=== PATIENT | female | born 1995 | race Caucasian/White ===

== ENCOUNTER 2016-08-28 19:02 | Emergency (ER) | payer OTHER ==
[2016-08-28] MEDS ORDERED: LACTATED RINGER'S 1000 ML INJ 1,000 ML IV SCH (19:39)
[2016-08-28] MEDS ORDERED: SODIUM CHLORIDE 0.9% FLUSH 10 ML FLUSH IV FLUSH PRN (19:45)
[2016-08-28] MEDS ORDERED: ONDANSETRON HCL 4 MG/2 ML VIAL IV ONE (19:45)
[2016-08-28 20:28] LABS: HEMATOCRIT 33.2 % (35.0-46.0); MEAN CORPUSCULAR HEMOGLOBIN 29.8 PG (27.0-34.0); MEAN CORPUSCULAR HGB CONC 33.9 % (32.0-36.0); PLATELET COUNT 340 TH/MM3 (150-450); RED BLOOD COUNT 3.77 MIL/MM3 (4.00-5.30); RED CELL DISTRIBUTION WIDTH 17.2 % (11.6-17.2); REVIEW FLAG FINAL; WHITE BLOOD COUNT 17.4 TH/MM3 (4.0-11.0)
--- NOTE | 2016-08-28 20:34 | PD ---
HPI Chief Complaint vomiting Date Seen: Aug 28, 2016 (Scottie Gonzalez MD R2) Travel History International Travel<30 Days: No Contact w/Intl Traveler<30Days: No (Scottie Gonzalez MD R2) History of Present Illness HPI Ms. Regan is a 21 yo at 19 1/7 weeks (confirmed via ?2nd trimester US per patient) who presents with ~2 days of nausea/vomiting. Patient states that she has had recurrent symptoms of vomiting for approximately 48 hours; she states she has not been able to keep down food or liquids such as water during this period. Patient states that she has had vomiting previously in , and was previously diagnosed with her [employer] in [place] with hyperemesis gravidarum. Patient states that she was last hospitalized for IV fluids at approximately 13 weeks gestation; she states that she was forced to leave due to needing to care for her 1 yr old child. She has been prescribed promethazine and Zofran; she has been taking both of these medications during recent 2 days of vomiting without relief. Patient states that she cannot remember the last time she urinated but it has been a significant duration. Patient reports abdominal cramping but believes it to be secondary to dry heaving. Patient also reports dizziness, headaches, and shortness of breath in association with vomiting. No leg swelling. Patient reports unremarkable course other than hyperemesis. She reports normal US ~2 days ago. Patient reports moving to [facility] today via plane to live with her father. She reports she is in a safe social situation. Para: 1 : 2 (Sctotie Gonzalez MD R2) History Past Medical History Narrative Medical Hyperemesis (Scottie Gonzalez MD R2) Obstetric History Obstetric History 001 Full term vaginal delivery one year prior (Scottie Gonzalez MD R2) Past Surgical History Surgical History: No Previous Surgery (Scottie Gonzalez MD R2) Family History Family History: Negative (Scottie Gonzalez MD R2) Social History Narrative Social History Moved from [place] to [place] today. Patient residing with her father; patient reports safe social situation at home Alcohol Use: No Tobacco Use: No Substance Abuse: No (Scottie Gonzalez MD R2) Allergies-Medications (Allergen,Severity, Reaction): Coded Allergies: No Known Allergies (Unverified , 08/28/16) Home Meds Active Scripts Ondansetron Odt (Zofran Odt)4 Mg Tab4 Mg SL Q12HR PRN (Nausea/Vomiting) #20 TAB Ref 0 Prov:Scottie Gonzalez MD R2 08/28/16 Nitrofurantoin Monohydrate Macrocrystals (Macrobid)100 Mg [id number] Mg PO BID #14 CAP Ref 0 Prov:Scottie Gonzalez MD R2 08/28/16 Review of Systems General / Constitutional: No: Fever Eyes: No: Blurred Vision HENT: Headaches Cardiovascular: No: Chest Pain or Discomfort Respiratory: Short of Breath (in association with vomiting) Gastrointestinal: Nausea, Abdominal Pain (cramping, associated with vomiting) Genitourinary: Decreased Urinary Output Psychiatric: No: Anxiety, Depression (Scottie Gonzalez MD R2) Physical Exam BP 120/73 HR 76 RR 18 Narrative GENERAL: Well-nourished, well-developed patient. SKIN: Warm and dry. HEAD: Normocephalic and atraumatic. EYES: No scleral icterus. No injection or drainage. ENT: No nasal drainage noted. Mucous membranes pink. Airway patent. NECK: Supple, trachea midline. No JVD. CARDIOVASCULAR: Regular rate and rhythm, normal perfusion RESPIRATORY: CTAB, normal rate ABDOMEN/GI: Abdomen soft, non-tender, bowel sounds present, no rebound, no guarding Gravid; fundus approximately at umbilicus EXTREMITIES: No cyanosis or edema. NEUROLOGICAL: Awake and alert. Motor and sensory function grossly within normal limits. FHT's: FHR 150 with Doppler (Scottie Gonzalez MD R2) Data Data Vital Signs Reviewed: Yes Orders Vital Signs (Adult) .ON ADMISSION (08/28/16 19:39) Urinalysis - C+S If Indicated (08/28/16 19:39) ^ Hydration (08/28/16 19:39) Cbc No Diff, Includes Plts (08/28/16 19:39) Comprehensive Metabolic Panel (08/28/16 19:39) Gc And Chlamydia Pcr (08/28/16 19:39) Lactated Ringer's 1000 Ml Inj (Lr 1000 M (08/28/16 19:39) Sodium Chloride 0.9% Flush (Ns Flush) (08/28/16 21:00) Sodium Chloride 0.9% Flush (Ns Flush) (08/28/16 19:45) Ondansetron Inj (Zofran Inj) (08/28/16 19:45) Ob/Psych Drug Screen, Urine (08/28/16 19:39) Rubella Immune Status (08/28/16 19:39) Hepatitis Profile (08/28/16 19:39) Rapid Plasma Regin (Rpr) W Ttr (08/28/16 19:39) Type And Screen (08/28/16 19:39) Special Serology (08/28/16 19:39) Thyroid Stimulating Hormone (08/28/16 19:39) (Scottie Gonzalez MD R2) Vital Signs Reviewed: Yes Labs Laboratory Tests Test 08/28/16 08/28/16 19:40 20:15 White Blood Count 17.4 TH/MM3 (4.0-11.0) Red Blood Count 3.77 MIL/MM3 (4.00-5.30) Hemoglobin 11.3 GM/DL (11.6-15.3) Hematocrit 33.2 % (35.0-46.0) Mean Corpuscular Volume 88.0 FL (80.0-100.0) Mean Corpuscular Hemoglobin 29.8 PG (27.0-34.0) Mean Corpuscular Hemoglobin 33.9 % Concent (32.0-36.0) Red Cell Distribution Width 17.2 % (11.6-17.2) Platelet Count 340 TH/MM3 (150-450) Mean Platelet Volume 9.0 FL (7.0-11.0) Sodium Level 138 MEQ/L (136-145) Potassium Level 3.0 MEQ/L (3.5-5.1) Chloride Level 104 MEQ/L (98-107) Carbon Dioxide Level 23.1 MEQ/L (21.0-32.0) Anion Gap 11 MEQ/L (5-15) Blood Urea Nitrogen 11 MG/DL (7-18) Creatinine 0.70 MG/DL (0.50-1.00) Estimat Glomerular Filtration 104 ML/MIN Rate (>89) Random Glucose 74 MG/DL (74-106) Calcium Level 8.5 MG/DL (8.5-10.1) Total Bilirubin 0.5 MG/DL (0.2-1.0) Aspartate Amino Transf 22 U/L (15-37) (AST/SGOT) Alanine Aminotransferase 23 U/L (10-53) (ALT/SGPT) Alkaline Phosphatase 73 U/L (45-117) Total Protein 7.3 GM/DL (6.4-8.2) Albumin 3.4 GM/DL (3.4-5.0) Thyroid Stimulating Hormone 0.404 uIU/ML 3rd Gen (0.358-3.740) Blood Type A POSITIVE Antibody Screen NEGATIVE Blood Bank Comment Urine Color YELLOW (YELLW/STRAW) Urine Turbidity CLEAR (CLEAR) Urine pH 6.5 (5.0-8.5) Urine Specific [place] 1.029 (1.002-1.035) Urine Protein 30 mg/dL (NEG-TRACE) Urine Glucose (UA) NEG mg/dL (NEG) Urine Ketones 150 mg/dL (NEG) Urine Occult Blood NEG (NEG) Urine Nitrite POS (NEG) Urine Bilirubin NEG (NEG) Urine Urobilinogen LESS THAN 2.0 MG/DL (LESS THAN 2.0) Urine Leukocyte Esterase NEG (NEG) Urine RBC 2 /hpf (0-3) Urine WBC 6 /hpf (0-5) Urine Squamous Epithelial 4 /hpf (0-5) Cells Urine Bacteria MANY /hpf (NONE) Urine Mucus FEW /lpf (OCC) Microscopic Urinalysis Comment CULTURE INDICATED Urine Opiates Screen NEG (NEG) Urine Barbiturates Screen NEG (NEG) Urine Amphetamines Screen NEG (NEG) Urine Benzodiazepines Screen NEG (NEG) Urine Cocaine Screen NEG (NEG) Urine Cannabinoids Screen POS (NEG) (Peyton Jimenez MD) MDM Medical Record Reviewed: Yes Narrative Course / MDM 21 yo at 19 1/7 weeks (confirmed via ? 2nd trimester US per patient) who presents with ~2 days of nausea/vomiting -Suspect hyperemesis with vomiting w/o adequate oral intake -FHR 150 -No labs at this time Plan: -Will give IV fluids -Will check CBC, TSH, CMP, UA, UDS -Will check labs -Records request sent to prior OB -Will give Zofran 4mg IV Interval: CBCWBC 17.4, Hgb 11.3, PLT 340 CMPK 3, CR 0.70, LFTs wnl TSHWNL UA30 protein, 150 ketones. Positive nitrates, WBC 6, many bacteria UDSpositive for marijuana GC, chlamydia, labs pending Patient responded well to Zofran IV fluids Updated plan: We'll plan to discharge patient home with follow-up with OB provider per her choice in the community; will give patient resources for care for women and her family sports medicine We'll discharge him prescription for Macrobid for suspected UTI We'll discharge Zofran 4mg SL for vomiting Patient to return to OB ED with new symptoms or vomiting returns (Scottie Gonzalez MD R2) Attending Attestation 21 yo @ 19 weeks Hyperemesis treated in early . Continues to have some N/V. Arrived in [place] today moving from [place], records requested N/V with dehydration s/p IV fluids/Zofran Tolerating po and oral fluids now UA c/w UTI rx Macrobid Mild hypokalemia Rx given for oral K +THC - counseled (Peyton Jimenez MD) Diagnosis Diagnosis: Primary Impression: Hyperemesis gravidarum Additional Impressions: 19 weeks gestation of Tetrahydrocannabinol (THC) use disorder, mild, abuse Genitourinary tract infection during in second trimester Disposition: DISCHARGE HOME Condition: Stable Scripts Ondansetron Odt (Zofran Odt)4 Mg Tab4 Mg SL Q12HR PRN (Nausea/Vomiting) #20 TAB Ref 0 Prov:Scottie Gonzalez MD R2 08/28/16 Nitrofurantoin Monohydrate Macrocrystals (Macrobid)100 Mg [id number] Mg PO BID #14 CAP Ref 0 Prov:Scottie Gonzalez MD R2 08/28/16 Patient Instructions: Urinary Tract Infection in (ED), General Instructions, Morning Sickness (ED) Scottie Gonzalez MD R2 Aug 28, 2016 20:34 Peyton Jimenez MD Aug 28, 2016 21:36
[2016-08-28 20:45] LABS: ANION GAP 11 MEQ/L (5-15); AST (GOT) 22 U/L (15-37); BICARBONATE 23.1 MEQ/L (21.0-32.0); BLOOD UREA NITROGEN 11 MG/DL (7-18); CHLORIDE 104 MEQ/L (98-107); GLOMERULAR FILTRATION RATE 104 ML/MIN (>89); SODIUM (NA) 138 MEQ/L (136-145)
[2016-08-28 20:55] LABS: BACTERIA, URINE MANY /hpf; BLOOD, URINE NEG (NEG); COMMENT (UR) CULTURE INDICATED; CULTURE IF INDICATED CULTURE INDICATED; GLUCOSE,URINE NEG (NEG); KETONE, URINE 150 mg/dL (NEG); MUCUS URINE FEW /lpf (OCC); NITRITE,URINE POS (NEG); PH, URINE 6.5 (5.0-8.5); SQUAMOUS EPITHELIAL CELL URINE 4 /hpf (0-5); URINE COLOR YELLOW (YELLW/STRAW)
[2016-08-28 20:56] LABS: ALKALINE PHOSPHATASE 73 U/L (45-117); ALT (GPT) 23 U/L (10-53); TOTAL BILIRUBIN ADULT 0.5 MG/DL (0.2-1.0)
[2016-08-28 21:00] LABS: AMPHETAMINE, URINE NEG (NEG); BARBITURATES, URINE NEG (NEG); COCAINE, URINE NEG (NEG)
[2016-08-28] MEDS ORDERED: SODIUM CHLORIDE 0.9% FLUSH 10 ML FLUSH IV FLUSH SCH (21:00)
[2016-08-28] MEDS ORDERED: ZOFR4TAB3 SL (21:29)
[2016-08-28] MEDS ORDERED: MACR100C2 PO (21:29)
[2016-08-28] MEDS ORDERED: POTASSIUM CHLORIDE 20 MEQ CONTROLLED RELEASE TAB PO ONE (21:30)
[2016-08-28] MEDS ORDERED: NITROFURANTOIN MONOHYD MACROCR 100 MG CAP PO SCH (21:30)
[2016-08-28 23:15] LABS: RUBELLA IGG ANTIBODY 49.7 IU/mL (10.0-500.0); RUBELLA STATUS IMMUNE (IMMUNE)
[2016-08-29 00:32] LABS: CHLAMYDIA PCR NOT DETECTED (NOT DETECT); NEISSERIA PCR NOT DETECTED (NOT DETECT)
[2016-08-29 10:04] LABS: RAPID PLASMA REAGIN SCREEN NON-REACTIVE (NON-REACTVE)
[2016-09-03 12:55] LABS: PHENCYCLIDINE URINE NEG (NEG)
[2016-09-03 12:56] LABS: BATH SALTS (MDPV) UR NEG (NEG); ECSTASY (MDMA) UR NEG (NEG); GABAPENTIN UR NEG (NEG); HEROIN (6-ACETYLMORPHINE) UR NEG (NEG); HYDROMORPHONE U NEG (NEG); K2 SPICE UR NEG (NEG); OBMETHADONE UR NEG (NEG); OXYCODONE (PERCODAN) NEG (NEG)
[2016-11-01] MEDS ORDERED: FERR325T20 PO (10:53)
[2016-11-01] MEDS ORDERED: PREN1CHW7 PO (10:53)
== END 2016-08-29 01:40 | disposition home or self-care (01) ==
LOC: HOBED 19:02
DX: O21.1 Hyperemesis gravidarum with metabolic disturbance (principal); O23.42 Unspecified infection of urinary tract in pregnancy, second trimester; B96.20 Unspecified Escherichia coli [E. coli] as the cause of diseases classified elsewhere; R42 Dizziness and giddiness; R51 Headache; Z3A.19 19 weeks gestation of pregnancy; O26.832 Pregnancy related renal disease, second trimester; R34 Anuria and oliguria; F12.10 Cannabis abuse, uncomplicated
CPT/HCPCS: 80053; 80074; 80307; 81001; 84443; 85027; 86592; 86703; 86762; 86850; 86900; 86901; 87077; 87086; 87186; 87491; 87591; 96361; 96374; 99284; G0481